=== PATIENT | female | born 1970 | race Two or more races ===

== ENCOUNTER 2016-07-17 17:15 | Emergency (ER) | payer OTHER ==
[~2016-07-17 17:15] MED LIST: ACYCLOVIR; ACYCLOVIR PO; ACYCLOVIR400 MG PO; ALEVE220 M1 PO; ALPRAZOLAM PO; ANIMAL SHAPES1 EAC2; BACTRIM DS TABL1 TA1 PO; BACTRIM DS TABL1 TA2 PO; BENADRYL PO; CIPRO; DICLOFENAC PO; FAMOTIDINE PO; FLAGYL PO; FLEXERIL; FLEXERIL PO; FLEXERIL10 MG PO; HYDROCORTISONE30 G2 TOP; IBUPROFEN600 MG PO; MEDROL4 MG/DOSE- PO; MOTRIN400 MG; NO MEDICATIONS; PREDNISONE PO; PREDNISONE10 MG PO; PROTONIX; PYRIDIUM PO; PYRIDIUM100 MG PO; REGLAN PO; STRI; TETRACYCLINE; THERAFLU; TOBRADEX EYE DRO5 ML OS; VALTREX PO; VICODIN 5/500 T1 TAB PO; VISTARIL PO; ZANTAC150 MG PO; ZITHROMAX1 G/PKT PO; ZITHROMAX500 MG PO; ZOFRAN ODT4 MG PO; ZOFRAN PO; ZOVIRAX200 MG PO
== END 2016-07-17 18:18 | disposition home or self-care (01) ==
LOC: SED 17:15
DX: T78.40XA Allergy, unspecified, initial encounter (principal); F41.0 Panic disorder [episodic paroxysmal anxiety]; F17.200 Nicotine dependence, unspecified, uncomplicated; Z91.010 Allergy to peanuts; Z88.8 Allergy status to other drugs, medicaments and biological substances; Z91.012 Allergy to eggs
CPT/HCPCS: 99283; J1100; J1200

== ENCOUNTER 2016-07-20 20:52 | Emergency (ER) | payer OTHER ==
[2016-07-20 21:55] LABS: URINE SOURCE CLEAN CATCH
[2016-07-20 21:57] LABS: URINE APPEARANCE CLEAR; URINE BILIRUBIN NEG (NEG); URINE BLOOD TRACE-INTACT (NEG); URINE COLOR YELLOW; URINE GLUCOSE NEG (NORM); URINE KETONE NEG (NEG); URINE LEUKOCYTE ESTERASE NEG (NEG); URINE NITRATE NEG (NEG); URINE PROTEIN NEG (NEG); URINE SPECIFIC GRAVITY 1.015 (1.003-1.035); URINE UROBILINOGEN 0.2 MG/DL (NORM)
[2016-07-20 21:59] LABS: MICRO INDICATED? YES
[2016-07-20 22:02] LABS: URINE BACTERIA NEG (NEG); URINE MUCUS PRESENT; URINE SQUAMOUS EPITHELIAL CELL OCCAS /[HPF]; URINE TRANSITIONAL EPI CELLS FEW /[HPF]; URINE WBC 0-2 /[HPF] (0-5)
== END 2016-07-20 22:18 | disposition home or self-care (01) ==
LOC: SED 20:52
PROVIDERS: Physician Assistant
DX: A60.00 Herpesviral infection of urogenital system, unspecified (principal); F17.210 Nicotine dependence, cigarettes, uncomplicated; F41.9 Anxiety disorder, unspecified; Z98.51 Tubal ligation status; Z91.010 Allergy to peanuts; Z91.012 Allergy to eggs
CPT/HCPCS: 81003; 99283

== ENCOUNTER 2016-11-12 18:41 | Emergency (ER) | payer OTHER ==
--- NOTE | ~2016-11-12 | CR63 ---
[facility]. [facility] A Service of [facility] & [facility] RADIOLOGY TEXT RESULTS PATIENT: ARINA POWELL LOCATION: SED : 66 UNIT #: [id number] AGE: [address]: Davonte Hollins DO SEX: F ORDER DR: [id number] [place] [id number] E MR#: [id number] Acc #: [id number] NAME: ARINA POWELL : 1970 SEX: F STUDY DATE/TIME: 11/12/2016 19:36 UNIT: SED ROOM: STUDY DESCRIPTION: CR Chest 2 View Attending Physician: Davonte Hollins D.O.. Ordering Physician: Davonte Hollins D.O.. Primary Care Physician: Paramjit Bustos M.D. MEDICAL IMAGING REPORT This report is preliminary unless electronic signature is present. EXAM Two-view chest HISTORY Earache, sore throat, congestion for 4 days. FINDINGS PA and lateral examination of the chest upright shows a good expansion of the parenchyma with a normal distribution of the pulmonary vascularity. There is no indication of congestion, effusion, infiltrate, tumor, or nodular density. The pleural reflections and diaphragmatic contours are normal. The cardiac silhouette and mediastinal anatomy is within normal limits. IMPRESSION Normal chest. Dictated by... Lew Vaca M.D. THIS IS AN ELECTRONICALLY VERIFIED REPORT Lew Vaca M.D. at 11/13/2016 7:37 PM Prosper TD: 11/13/2016 17:16 JOB #: [id number] MEDICAL IMAGING REPORT Page 1 of 1
[2016-11-12 19:43] LABS: INFLUENZA A NEG (NEG)
[2016-11-12 19:44] LABS: INFLUENZA B NEG (NEG)
== END 2016-11-12 20:44 | disposition home or self-care (01) ==
LOC: SED 18:41
PROVIDERS: Emergency Medicine
DX: B34.9 Viral infection, unspecified (principal); H66.92 Otitis media, unspecified, left ear
CPT/HCPCS: 71020; 87651; 87804; 99283